=== PATIENT | female | born 1950 | race American Indian/Alaskan Native ===

== ENCOUNTER 2017-12-18 21:30 | Emergency (ER) | payer MEDICARE, OTHER ==
--- NOTE | 2017-12-18 21:43 | ED Physician Documentation ---
History of Present Illness - Stated complaint Stated Complaint: LEG/KNEE PX - Chief complaint Chief Complaint: Ext Problem - History obtained from History obtained from: Patient - History of Present Illness Timing: Other (ongoing for months, worsening past week and became intolerable today) Pain level now: 9 Improved by: rest Worsened by: ambulation/weight-bearing - Additonal information Additional information: c/o months of left lower extremity pain, atraumatic, from left knee to mid- tibial area anteriorly. She also feels this area is swollen. Review of Systems Constitutional: denies: Fever Cardiac: denies: Chest pain / pressure Respiratory: denies: Dyspnea Skin: denies: Rash Musculoskeletal: reports: Extremity pain, Joint pain, Extremity swelling, Pain with weight bearing Neurologic: denies: Focal weakness, Numbness PD PAST MEDICAL HISTORY - Past Medical History Past Medical History: Yes Cardiovascular: Hypertension, High cholesterol Endocrine/Autoimmune: Type 2 diabetes - Past Surgical History Past Surgical History: Yes - Present Medications Home Medications: Ambulatory Orders Medication Instructions Recorded Confirmed Aspirin 12/18/17 Atorvastatin [Lipitor] 12/18/17 12/18/17 Metoprolol Succinate [Toprol Xl] 12/18/17 Nortriptyline [Pamelor] 12/18/17 metFORMIN [Glucophage] 12/18/17 Hydrocodone/Acetaminophen 1 - 2 each PO Q6HR PRN #14 tablet 12/19/17 [Hydrocodon-Acetaminophen 5-325] - Allergies Allergies/Adverse Reactions: Allergies Allergy/AdvReac Type Severity Reaction Status Date / Time Penicillins Allergy Edema Verified 12/18/17 21:38 latex AdvReac Rash Verified 12/18/17 21:59 pregabalin [From Lyrica] AdvReac Unknown Verified 12/18/17 21:38 - Living Situation Living Arrangement: reports: At home - Social History Does the pt smoke?: No PD ED PE NORMAL - Vitals Vital signs reviewed: Yes - General General: Alert and oriented X 3, No acute distress, Well developed/nourished - Respiratory Respiratory: No respiratory distress - Derm Derm: Normal color, Warm and dry, No rash - Extremities Extremities: No tenderness to palpate, Normal ROM s pain, No edema, No calf tenderness / cord - Neuro Neuro: No motor deficit, No sensory deficit Results - Vitals Vitals: Vital Signs - 24 hr 12/18/17 12/19/17 21:36 00:31 Temperature 36.4 C L Heart Rate 83 81 Respiratory 18 16 Rate Blood Pressure 181/87 H 155/76 H O2 Saturation 96 99 Oxygen O2 Source Room air - Rads (name of study) LLE US Radiology: Prelim report reviewed, See rad report PD MEDICAL DECISION MAKING - ED course Complexity details: reviewed results, re-evaluated patient, considered differential, d/w patient - Sepsis Event Vital Signs: Vital Signs - 24 hr 12/18/17 12/19/17 21:36 00:31 Temperature 36.4 C L Heart Rate 83 81 Respiratory 18 16 Rate Blood Pressure 181/87 H 155/76 H O2 Saturation 96 99 Oxygen O2 Source Room air Departure - Departure Disposition: 01 Home, Self Care Clinical Impression: Pain of lower extremity, Singh cyst Condition: Good Instructions: ED Cyst Singh Follow-Up: MONICA BEAVERS MD [Primary Care Provider] - Within 1 week Prescriptions: Hydrocodone/Acetaminophen [Hydrocodon-Acetaminophen 5-325] 1 - 2 each PO Q6HR PRN #14 tablet PRN Reason: Pain Discharge Date/Time: 12/19/17 00:31
[2017-12-18] MEDS ORDERED: IBUPROFEN 600 MG TABLET PO STA (21:54)
--- NOTE | 2017-12-18 23:31 | Ultrasound Report ---
Procedure Date: 12/18/2017 Accession Number: [id number] / [id number] Procedure: US - Duplex Ext Veins Left CPT Code: FULL RESULT: EXAM: LEFT LOWER EXTREMITY VENOUS ULTRASOUND EXAM DATE: 12/18/2017 10:47 PM. CLINICAL HISTORY: Left leg pain, swelling. COMPARISON: None. TECHNIQUE: Real-time sonographic vascular imaging was performed by the cattle sprayer through the lower extremity utilizing both color-flow and Doppler spectral analysis. Multiple arborist representative static images were saved for review. FINDINGS: Common Femoral Vein (CFV): Normal. CFV-GSV Junction: Normal. Profunda Femoral Vein (PFV): Normal. Femoral Vein (FV) Prox: Normal. Femoral Vein (FV) Mid: Normal. Femoral Vein (FV) Dist: Normal. Popliteal Vein: Normal. Posterior Tibial Veins: Normal. Peroneal Veins: Normal. Contralateral Side CFV: Normal. Other: Small Singh's cyst in the left popliteal fossa, measuring 2.5 cm. IMPRESSION: No evidence for deep venous thrombosis. RADIA
[2017-12-19] MEDS ORDERED: HYDROcod/ACET 5/325 Prepack 4 PO STA (00:22)
[2017-12-19 00:32] VITALS: BP 155/76
== END 2017-12-19 00:31 | disposition home or self-care (01) ==
LOC: ED 21:30
DX: M71.22 Synovial cyst of popliteal space [Baker], left knee (principal); M79.662 Pain in left lower leg; I10 Essential (primary) hypertension; E11.9 Type 2 diabetes mellitus without complications; Z79.84 Long term (current) use of oral hypoglycemic drugs; Z79.82 Long term (current) use of aspirin
CPT/HCPCS: 93971; 99283; A9270

== ENCOUNTER 2019-04-23 04:06 | Emergency (ER) | payer MEDICARE, OTHER ==
[2019-04-23 04:34] LABS: BILIRUBIN,URINE NEGATIVE (NEGATIVE); GLUCOSE, URINE (UA) NEGATIVE (NEGATIVE); KETONES,URINE (UA) NEGATIVE (NEGATIVE); LEUKOCYTE ESTERASE, URINE SMALL (NEGATIVE); NITRITE,URINE NEGATIVE (NEGATIVE); OCCULT BLOOD,URINE LARGE (NEGATIVE); PROTEIN,URINE TRACE mg/dL (NEGATIVE); UROBILINOGEN,URINE 0.2 (NORMAL) E.U./dL (NORMAL)
[2019-04-23 04:35] LABS: CLARITY,URINE CLEAR (CLEAR)
[2019-04-23 04:49] LABS: BACTERIA,URINE Few /HPF (None Seen); SQUAMOUS EPITHELIAL CELL,UR RARE Squamous (<= Few)
--- NOTE | 2019-04-23 04:59 | ED Physician Documentation ---
History of Present Illness - Stated complaint Stated Complaint: FEM - Chief complaint Chief Complaint: Abd Pain - Additonal information Additional information: This is a 68-year-old female with a history of hysterectomy, bladder lift surg louann, who presents with blood in her urine. She has suffered from what sounds like urge incontinence For quite a while, but over the last week or so she has had greatly increased frequency and urgency, and today she noticed blood in her urine during multiple episodes of urination. She does have some mild abdominal discomfort. She has had a kidney stone in the past which is had a been surgically removed. She denies nausea or vomiting, denies any blood in her stool. She states that when she wipes after urination she will notice Some blood on the toilet paper, and some blood in the toilet bowl. No blood in her stool. 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 - Present Medications Home Medications: Ambulatory Orders Medication Instructions Recorded Confirmed Aspirin 12/18/17 Atorvastatin [Lipitor] 12/18/17 12/18/17 Metoprolol Succinate [Toprol Xl] 12/18/17 Nortriptyline [Pamelor] 12/18/17 metFORMIN [Glucophage] 12/18/17 Hydrocodone/Acetaminophen 1 - 2 each PO Q6HR PRN #14 tablet 12/19/17 [Hydrocodon-Acetaminophen 5-325] Cefdinir 300 mg PO BID #14 capsule 04/23/19 - Allergies Allergies/Adverse Reactions: Allergies Allergy/AdvReac Type Severity Reaction Status Date / Time Penicillins Allergy Edema Verified 04/23/19 04:14 latex AdvReac Rash Verified 04/23/19 04:14 pregabalin [From Lyrica] AdvReac Unknown Verified 04/23/19 04:14 - Social History Does the pt smoke?: No Smoking Status: Never smoker Does the pt drink ETOH?: No Does the pt have substance abuse?: No - Immunizations Immunizations are current?: Yes - POLST Patient has POLST: No PD ED PE NORMAL - Vitals Vital signs reviewed: Yes - General General: Alert and oriented X 3, No acute distress - HEENT HEENT: PERRL - Neck Neck: Supple, no meningeal sign - Cardiac Cardiac: RRR, No murmur - Respiratory Respiratory: No respiratory distress, Clear bilaterally - Abdomen Abdomen: Soft, Other (Rotund, mildly tender diffusely, no guarding. Multiple well-healed surgical scars.) - Female Female : Medical Referral Coordinator present, Other (Normal external vulva, there is some erythema around the urethra, no blood seen. On speculum exam there is no blood in the vaginal vault, mucosa is normal in appearance) - Derm Derm: Warm and dry - Extremities Extremities: No deformity - Neuro Neuro: Alert and oriented X 3 - Psych Psych: Normal mood, Normal affect Results - Vitals Vitals: Oxygen O2 Source Room air - Labs Labs: Microbiology 04/23/19 04:15 Urine Culture - Final Urine,Clean Catch No growth Laboratory Tests 04/23/19 04/23/19 04/23/19 04:15 05:35 05:35 WBC 14.2 H RBC 4.56 Hgb 12.6 Hct 39.9 MCV 87.5 MCH 27.6 MCHC 31.6 L RDW 13.6 Plt Count 320 MPV 9.2 Neut # (Auto) 10.9 H Lymph # (Auto) 2.2 [place] # (Auto) 0.7 Eos # (Auto) 0.3 Baso # (Auto) 0.1 Absolute Nucleated RBC 0.00 Nucleated RBC % 0.0 PT 11.7 INR 1.0 Sodium Potassium Chloride Carbon Dioxide Anion Gap BUN Creatinine Estimated GFR (MDRD) Glucose Calcium Total Bilirubin AST ALT Alkaline Phosphatase Total Protein Albumin Globulin Albumin/Globulin Ratio Lipase Urine Color YELLOW Urine Clarity CLEAR Urine pH 7.0 Ur Specific [place] <=1.005 Urine Protein TRACE Urine Glucose (UA) NEGATIVE Urine Ketones NEGATIVE Urine Occult Blood LARGE H Urine Nitrite NEGATIVE Urine Bilirubin NEGATIVE Urine Urobilinogen 0.2 (NORMAL) Ur Leukocyte Esterase SMALL H Urine RBC 6-10 H Urine WBC 11-25 H Ur Squamous Epith Cells RARE Squamous Urine Bacteria Few Ur Microscopic Review INDICATED Urine Culture Comments INDICATED 04/23/19 05:35 WBC RBC Hgb Hct MCV MCH MCHC RDW Plt Count MPV Neut # (Auto) Lymph # (Auto) [place] # (Auto) Eos # (Auto) Baso # (Auto) Absolute Nucleated RBC Nucleated RBC % PT INR Sodium 143 Potassium 3.7 Chloride 106 Carbon Dioxide 27 Anion Gap 10.0 BUN 14 Creatinine 0.8 Estimated GFR (MDRD) 71 L Glucose 233 H Calcium 9.1 Total Bilirubin 0.8 AST 18 ALT 24 Alkaline Phosphatase 90 Total Protein 7.2 Albumin 3.9 Globulin 3.3 Albumin/Globulin Ratio 1.2 Lipase 37 Urine Color Urine Clarity Urine pH Ur Specific [place] Urine Protein Urine Glucose (UA) Urine Ketones Urine Occult Blood Urine Nitrite Urine Bilirubin Urine Urobilinogen Ur Leukocyte Esterase Urine RBC Urine WBC Ur Squamous Epith Cells Urine Bacteria Ur Microscopic Review Urine Culture Comments - Rads (name of study) CT abd/pelvis with Radiology: Other (No obstructing stones there is mild right hydronephrosis which could be due to postsurgical change or infection. There are some metallic densities in which could be related to prior surgery, there is urinary bladder wall thickening with some adjacent fat stranding, suspicious for cystitis, and a 0.5 cm juxtapleural pulmonary nodule as well as potentially complex cysts in the kidneys.) PD MEDICAL DECISION MAKING - ED course Complexity details: considered differential (UTI, nephrolithiasis, tumor, obstruction, vaginal bleeding, pyelonephritis) ED course: Pt is non-toxic appearing, hypertensive on arrival. Her abdomen is only mildly tender. Labs are notable for a leukocytosis, normal hemoglobin, normal creatinine, and UA consistent with UTI with WBC, bacteria, and RBCs. Genital exam shows some mild irritation around the urethra, no active bleeding, no vaginal bleeding. She has had a hysterectomy. Pt was concerned about kidney stones given her history of a large stone that needed to be surgically removed, CT scan shows thickened bladder and incidental findings. On repeat exam she continues to be well appearing with a benign abdomen. She was given 1g ceftriax one IV and I discussed our work up, and treatment of what appears to be hemorrhagic cystitis. I also discussed return precautions and PCP follow up. I spoke about her incidental findings on CT as well. Pt agreed with this plan and was discharged home. Departure - Departure Disposition: 01 Home, Self Care Clinical Impression: Pyelonephritis, acute Condition: Good Instructions: Pyelonephritis Dc Follow-Up: MONICA BEAVERS MD [Primary Care Provider] - Within 1 week Prescriptions: Cefdinir 300 mg PO BID #14 capsule Comments: You were seen today for increased urge and frequency of urination as well as blood in your urine. Your labs do show a urinary tract infection, please start the Cefdinir and take the entire course of antibiotics as prescribed. If you develop any worsening symptoms such as Increasing abdominal pain, persistent vomiting, or increasing bleeding, return to the emergency department. Please follow-up with your primary care provider on your symptoms and to receive a repeat urinalysis to check for continued blood in your urine. You should also follow-up with your primary care provider on the incidental findings seen on your CT including complex renal cysts, as well as a juxtapleural pulmonary nodule. Discharge Date/Time: 04/23/19 08:24
[2019-04-23 05:42] LABS: BASOPHILS # (AUTO) 0.1 10^3/uL (0.0-0.1); BASOPHILS % (AUTO) 0.4 %; EOSINOPHILS # (AUTO) 0.3 10^3/uL (0.0-0.7); EOSINOPHILS % (AUTO) 2.2 %; HGB - HEMOGLOBIN 12.6 g/dL (12.0-16.0); LYMPHOCYTES # (AUTO) 2.2 10^3/uL (1.5-3.5); LYMPHOCYTES % (AUTO) 15.7 %; MEAN CORPUSCULAR HEMOGLOBIN 27.6 pg (27.0-31.0); MEAN CORPUSCULAR HGB CONC 31.6 g/dL (32.0-36.0); MEAN CORPUSCULAR VOLUME 87.5 fL (81.0-99.0); MEAN PLATELET VOLUME 9.2 fL (7.9-10.8); MONOCYTES # (AUTO) 0.7 10^3/uL (0.0-1.0); MONOCYTES % (AUTO) 4.6 %; NEUTROPHILS # (AUTO) 10.9 10^3/uL (1.5-6.6); NEUTROPHILS % (AUTO) 76.5 %; PLT - PLATELET COUNT 320 10^3/uL (130-450); RED BLOOD COUNT 4.56 10^6/uL (4.20-5.40); RED CELL DISTRIBUTION WIDTH 13.6 % (12.0-15.0); WHITE BLOOD COUNT 14.2 x10^3/uL (4.8-10.8)
[2019-04-23 05:48] LABS: PT - PROTHROMBIN TIME 11.7 secs (9.9-12.6)
[2019-04-23 05:53] LABS: ALBUMIN 3.9 g/dL (3.2-5.5); ALBUMIN/GLOBULIN RATIO 1.2 (1.0-2.2); BILIRUBIN,TOTAL 0.8 mg/dL (0.2-1.0); CALCIUM 9.1 mg/dL (8.5-10.3); CREATININE 0.8 mg/dL (0.4-1.0); TOTAL PROTEIN 7.2 g/dL (6.7-8.2)
[2019-04-23] MEDS ORDERED: cefTRIAXone 1 GM in SODIUM CHLORIDE 0.9% MINIBAG 100 ML IV STA (05:53)
[2019-04-23] MEDS ORDERED: IOVERSOL 320 100 ML VIAL IVP ONE ×2 (06:21→07:04)
--- NOTE | 2019-04-23 08:02 | CT Report ---
Reason: Hematuria, RLQ abd pain, hx surg removed stone Procedure Date: 04/23/2019 Accession Number: [id number] / [id number] Procedure: CT - Abdomen/Pelvis W CPT Code: Final Report FULL RESULT: EXAM: CT ABDOMEN AND PELVIS EXAM DATE: 04/23/2019 07:01 AM. CLINICAL HISTORY: Hematuria, RLQ abd pain, hx surg removed stone. COMPARISONS: None. TECHNIQUE: Routine helical CT imaging was performed through the abdomen and pelvis. IV contrast: OPTI 320 100ML. Enteric contrast: No. Reconstructions: Coronal and sagittal. In accordance with CT protocol optimization, one or more of the following dose reduction techniques were utilized for this exam: automated exposure control, adjustment of mA and/or KV based on patient size, or use of iterative reconstructive technique. FINDINGS: Lung Bases: There is a 0.5 cm juxtapleural pulmonary nodule within the left lower lobe (image 6 series 3). Liver: Normal. No masses. Gallbladder/Bile Ducts: The gallbladder is surgically absent. There is no significant bile duct dilatation. Spleen: Normal. Pancreas: Normal. Adrenal Glands: Normal. Kidneys: There is mild right hydronephrosis with delayed nephrogram. No stones are seen. No significant perinephric stranding. There are several rounded isodensities within the bilateral kidneys. These demonstrate attenuation characteristics higher than that expected of simple cysts on (for example 1.2 x 1.5 cm mid right kidney image 43, 1.0 x 1.0 cm anterior left kidney image 37). Peritoneal Cavity/Bowel: Stomach and small bowel demonstrate no acute abnormalities. There is distal colon diverticulosis. There is no CT evidence of diverticulitis. There is moderate volume stool within colon. There are no enlarged mesenteric or retroperitoneal lymph nodes. There is no intraperitoneal free air or free fluid. The appendix is well visualized and normal. Pelvic Organs: There are several radiodensities within the upper urethra region. No clear evidence of bladder stone. There is mild urinary bladder wall thickening. No enlarged pelvic lymph nodes. Vasculature: No acute vascular abnormalities are seen. Bones: No significant abnormality. Other: None. IMPRESSION: 1. There is mild right hydronephrosis with delayed nephrogram. No obstructing stones are seen. Differential considerations include passed stone, postsurgical change, or infection. 2. There are several discrete radiodensities within the upper urethra region. These demonstrate metallic density and may be related to prior surgery. 3. There is mild urinary bladder wall thickening. There is some adjacent fat stranding. Findings are suspicious for cystitis. 4. There is several isodensities within the kidneys which demonstrate attenuation characteristics higher than expected for simple cysts. These probably represent complex cysts. Nonemergent renal ultrasound or comparison with any available cross-sectional imaging could be used for further evaluation as indicated. 5. There is a 0.5 cm juxtapleural pulmonary nodule within the right lung base. If the patient is at high risk for lung cancer, nonemergent chest CT follow-up is recommended. 6. There is distal colon diverticulosis without CT evidence of diverticulitis. RADIA
[2019-04-23 08:25] VITALS: BP 147/62
== END 2019-04-23 08:24 | disposition home or self-care (01) ==
LOC: ED 04:06
DX: N10 Acute pyelonephritis (principal); I10 Essential (primary) hypertension; Z87.442 Personal history of urinary calculi; Q61.02 Congenital multiple renal cysts; R91.1 Solitary pulmonary nodule; Z90.710 Acquired absence of both cervix and uterus; E11.9 Type 2 diabetes mellitus without complications; Z79.84 Long term (current) use of oral hypoglycemic drugs; Z79.82 Long term (current) use of aspirin
CPT/HCPCS: 36415; 74177; 80053; 81001; 83690; 85025; 85610; 87086; 96365; 99284; Q9967; 81003

== ENCOUNTER 2021-01-24 22:55 | Emergency (ER) | payer MEDICARE, OTHER ==
[2021-01-25 00:54] LABS: BILIRUBIN,URINE NEGATIVE (NEGATIVE); CLARITY,URINE CLEAR (CLEAR); GLUCOSE, URINE (UA) NEGATIVE (NEGATIVE); KETONES,URINE (UA) NEGATIVE (NEGATIVE); LEUKOCYTE ESTERASE, URINE SMALL (NEGATIVE); NITRITE,URINE NEGATIVE (NEGATIVE); OCCULT BLOOD,URINE LARGE (NEGATIVE); PH,URINE 5.5 PH (5.0-7.5); PROTEIN,URINE NEGATIVE (NEGATIVE); UROBILINOGEN,URINE 0.2 (NORMAL) E.U./dL (NORMAL)
--- NOTE | 2021-01-25 00:57 | ED Physician Documentation ---
PD HPI FEMALE - Stated complaint Stated Complaint: FEMALE - Chief complaint Chief Complaint: Ext Problem - History obtained from History obtained from: Patient - History of Present Illness Timing - onset: Enter time (21:15), Today Timing - details: Intermittant Pain level max: 0 Pain level max: 0 Associated symptoms: Hematuria. No: Fever, Abdominal pain, Back pain, Pelvic pain, Dysuria, Urinary frequency Similar symptoms before: Has not had sx before Recently seen: Not recently seen - Additional information Additional information: c/o painless hematuria since 9:15 pm tonight. denies clots, denies h/o similar symptom. Review of Systems Constitutional: denies: Fever, Weight Loss GI: reports: Reviewed and negative : reports: Hematuria. 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 - Present Medications Home Medications: Ambulatory Orders Medication Instructions Recorded Confirmed Aspirin 81 mg PO DAILY 12/18/17 Atorvastatin [Lipitor] 10 mg PO DAILY 12/18/17 12/18/17 Metoprolol Succinate [Toprol Xl] 100 mg PO 12/18/17 Nortriptyline [Pamelor] 10 mg PO 12/18/17 metFORMIN [Glucophage] 500 mg PO 12/18/17 Hydrocodone/Acetaminophen 1 - 2 each PO Q6HR PRN #14 tablet 12/19/17 [Hydrocodon-Acetaminophen 5-325] Cefdinir 300 mg PO BID #14 capsule 04/23/19 Nitrofurantoin [Macrobid] 100 mg PO BID #9 01/25/21 - Allergies Allergies/Adverse Reactions: Allergies Allergy/AdvReac Type Severity Reaction Status Date / Time Penicillins Allergy Edema Verified 01/24/21 22:58 latex AdvReac Rash Verified 01/24/21 22:58 pregabalin [From Lyrica] AdvReac Unknown Verified 01/24/21 22:58 - Social History Does the pt smoke?: No Smoking Status: Never smoker Does the pt drink ETOH?: No Does the pt have substance abuse?: No - Immunizations Immunizations are current?: Yes - POLST Patient has POLST: No PD ED PE NORMAL - Vitals Vital signs reviewed: Yes - General General: Alert and oriented X 3, No acute distress, Well developed/nourished - Abdomen Abdomen: Soft, Non distended, Other (mild TTP LLQ without rebound or guarding) - Back Back: No CVA TTP - Derm Derm: Normal color, Warm and dry - Extremities Extremities: No edema Results - Vitals Vitals: Oxygen O2 Source Room air - Labs Labs: Microbiology 01/25/21 00:48 Urine Culture - Final Urine,Clean Catch Less Than 10,000 COLONIES/ML UROGENITAL MAURICIO Laboratory Tests 01/25/21 01/25/21 01/25/21 00:48 01:45 01:45 WBC 10.5 RBC 4.49 Hgb 13.0 Hct 39.8 MCV 88.6 MCH 29.0 MCHC 32.7 RDW 13.2 Plt Count 316 MPV 9.2 Neut # (Auto) 6.2 Lymph # (Auto) 3.2 [place] # (Auto) 0.7 Eos # (Auto) 0.4 Baso # (Auto) 0.1 Absolute Nucleated RBC 0.00 Nucleated RBC % 0.0 Sodium 139 Potassium 3.5 Chloride 103 Carbon Dioxide 29 Anion Gap 7.0 BUN 17 Creatinine 0.6 Estimated GFR (MDRD) 98 Glucose 188 H Calcium 9.4 Urine Color YELLOW Urine Clarity CLEAR Urine pH 5.5 Ur Specific [place] 1.020 Urine Protein NEGATIVE Urine Glucose (UA) NEGATIVE Urine Ketones NEGATIVE Urine Occult Blood LARGE H Urine Nitrite NEGATIVE Urine Bilirubin NEGATIVE Urine Urobilinogen 0.2 (NORMAL) Ur Leukocyte Esterase SMALL H Urine RBC 11-25 H Urine WBC 6-10 H Ur Squamous Epith Cells FEW Squamous Urine Bacteria Few Ur Microscopic Review INDICATED Urine Culture Comments INDICATED - Rads (name of study) CT A/P with IV contrast Radiology: Prelim report reviewed, See rad report PD MEDICAL DECISION MAKING - ED course Complexity details: reviewed results, re-evaluated patient, considered differential, d/w patient ED course: UA shows RBC>WBC and bacteria (few). She does not c/o abdominal pain although she has mild TTP LLQ on exam. blood tests performed and results are unremarkable, followed by CT A/P to assess for possible inflammatory processes such as diverticulitis (could cause inflammation of adjacent ureter thereby causing the findings on UA), as well as to assess for masses that might cause hematuria. No emergently relevant nor concerning findings on CT (6mm right renal calculus is likely incidental finding). We discussed results and lack of diagnostic results to explain her hematuria. I explained that she might need further testing such as cystoscopy to further investigate potential causes of hematuria including malignancy (and that lack of concerning findings on tonights CT does not eliminate this possibility). Given that UTI is possible and one of the more common causes of hematuria, will rx 5 day course of macrobid to see if this eliminates the hematuria. Departure - Departure Disposition: 01 Home, Self Care Clinical Impression: Hematuria Condition: Good Instructions: ED Hematuria Prescriptions: Nitrofurantoin [Macrobid] 100 mg PO BID #9 Comments: Follow up with your urologist, next available appointment; you should follow up even if the blood in the urine clears Discharge Date/Time: 01/25/21 04:55
[2021-01-25 01:05] LABS: BACTERIA,URINE Few /HPF (None Seen); SQUAMOUS EPITHELIAL CELL,UR FEW Squamous (<= Few)
[2021-01-25 01:50] LABS: BASOPHILS # (AUTO) 0.1 10^3/uL (0.0-0.1); BASOPHILS % (AUTO) 0.7 %; EOSINOPHILS # (AUTO) 0.4 10^3/uL (0.0-0.7); HCT - HEMATOCRIT 39.8 % (37.0-47.0); LYMPHOCYTES # (AUTO) 3.2 10^3/uL (1.5-3.5); LYMPHOCYTES % (AUTO) 30.1 %; MEAN CORPUSCULAR HGB CONC 32.7 g/dL (32.0-36.0); MEAN CORPUSCULAR VOLUME 88.6 fL (81.0-99.0); MEAN PLATELET VOLUME 9.2 fL (7.9-10.8); MONOCYTES # (AUTO) 0.7 10^3/uL (0.0-1.0); MONOCYTES % (AUTO) 6.2 %; NEUTROPHILS # (AUTO) 6.2 10^3/uL (1.5-6.6); NEUTROPHILS % (AUTO) 58.7 %; PLT - PLATELET COUNT 316 10^3/uL (130-450); RED BLOOD COUNT 4.49 10^6/uL (4.20-5.40); RED CELL DISTRIBUTION WIDTH 13.2 % (12.0-15.0); WHITE BLOOD COUNT 10.5 x10^3/uL (4.8-10.8)
[2021-01-25 01:57] LABS: CALCIUM 9.4 mg/dL (8.5-10.3); CREATININE 0.6 mg/dL (0.4-1.0); POTASSIUM 3.5 mmol/L (3.5-5.0)
[2021-01-25] MEDS ORDERED: IOPAMIDOL-300 100 ML VIAL ONE (01:59)
[2021-01-25] MEDS ORDERED: IOPAMIDOL-300 100 ML VIAL IVP ONE (02:35)
[2021-01-25] MEDS ORDERED: NITROFURANTOIN MACRO 100 MG CAPSULE PO STA (04:38)
[2021-01-25 04:42] VITALS: BP 177/87
--- NOTE | 2021-01-25 08:07 | CT Report ---
PROCEDURE: Abdomen/Pelvis W INDICATIONS: painless hematuria CONTRAST: IV CONTRAST: Isovue 300 ml: 100 PO CONTRAST: *NO PO CONTRAST TECHNIQUE: After the administration of intravenous contrast, 5 mm thick sections acquired from the diaphragms to the symphysis. 5 mm thick coronal and sagittal reformats were acquired. For radiation dose reducti on, the following was used: automated exposure control, adjustment of mA and/or kV according to marco a ent size. COMPARISON: 04/23/2019 FINDINGS: Image quality: Excellent. ABDOMEN: Lung bases: Stable 5 mm pulmonary nodule, right lung base. Stable 3 mm subpleural pulmonary nodule, l eft lung base. Lung bases are clear. Heart size is normal. Solid organs: Liver and spleen are normal in size and enhancement. Gallbladder is surgically absent . Biliary system is non dilated. Pancreas enhances normally. No adrenal nodules. Kidneys demonstr ate normal size and enhancement, without hydronephrosis. 6 mm nonobstructing right middle pole renal calculus. Peritoneum and bowel: Bowel loops demonstrate normal wall thickness and caliber. No free fluid or a ir. Sigmoid diverticulosis without evidence of diverticulitis. Nodes and vessels: No retroperitoneal or mesenteric adenopathy by size criteria. Aorta and inferior vena cava are normal in size. Miscellaneous: No ventral hernias. PELVIS: Genitourinary: Bladder wall thickness is normal. Miscellaneous: No inguinal hernias or adenopathy. Uterus is surgically absent. Bones: No suspicious bony lesions. No vertebral body compression fractures. IMPRESSION: 1. No evidence acute abdominal process. 2. 6 mm nonobstructing right renal calculus. 3. Sigmoid diverticulosis. A preliminary report with the above findings was provided at the time of the study by [facility]. Reviewed by: Jerome Hurt MD on 01/25/2021 8:06 AM PDT Approved by: Jerome Hurt MD on 01/25/2021 8:06 AM PDT Station ID: [id number]
== END 2021-01-25 04:55 | disposition home or self-care (01) ==
LOC: ED 22:55
DX: R31.0 Gross hematuria (principal)
CPT/HCPCS: 36415; 74177; 80048; 81001; 85025; 87086; 99283; 99284; A9270; Q9967; 81003